=== PATIENT | female | born 1980 | race Caucasian/White ===

== ENCOUNTER 2022-02-16 14:00 | Outpatient (RCR) | payer OTHER, MEDICAID, SELFPAY ==
--- NOTE | 2022-01-31 16:06 | MHC.PT.EP ---
[facility] [place] [facility] [place] [facility] [place] [facility] [address] Uziel Andrew [address] [phone] F: [phone] F: [phone] F: [phone] F: [phone] Physical Therapy Plan of Care Date of Evaluation: Date of Surgery: NA Diagnosis: Unspecified fracture of sacrum, initial encounter for closed fracture Assessment: Glenys is a 41 year old female who is referred to PT Unspecified fracture of sacrum, initial encounter for closed fracture . She sustained the fracture about 2 weeks following a fall down the stairs. She also injured R shoulder and R LE. On PT examination she presented with TTP over thoraco-lumbar parapsinals, L4- L5 spinous process, B glute, sacrum and coccyx, 10/10 pain with sitting, walking and supine, decreased trunk ROM and B LE ROM, decreased B LE strength, altered posture and gait. She lives with her fiance who is currently helping her with all ADLS- like dressing showering, cleaning and cooking. 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 She is currently out of work. She would benefit from skilled PT to address the aforementioned impairments and improve tolerance to functional activities. Frequency and Duration: The patient will be seen 2/week for 6 weeks Short Term Goals: 1. Pt will have 50% decrease in pain and be able to walk for 10 minutes in 3 weeks. 2. Pt will be able to tolerate sitting for 15 minutes with a pain no more than 5/10 in 4 weeks Alf Goals: 1. Pt will be able to move her trunk through all planes of motion with a pain no more than 3/10 which will enable her to dress her lower body independently in 6 weeks. 2. Pt will demonstrate an increase in muscle strength by 1 grade which will enable to negotiate stairs and walk with a pain no more than 2/10 in 7 weeks. 3. Pt will be independent with [facility] for symptom management and maintenance following d/c in 8 weeks. Treatment Plan: Modalities to reduce pain, spasms and effusion. Manual therapy to restore motion and function. Therapeutic exercise to improve strength and flexibility. Neuromuscular re-education for posture and balance. Therapeutic activities to return to functional activities of daily living. Electronically signed by: Yesi Villavicencio PT DPT Please sign and return to therapist. Thank you for your referral.
--- NOTE | 2022-03-28 10:45 | MHC.PT.DC ---
[facility] [place] Office [place] Office [place] Office [address] [phone] F: [phone] F: [phone] F: [phone] F: [phone] Physical Therapy Discharge Report Diagnosis: Unspecified fracture of sacrum, initial encounter for closed fracture Date of Surgery: NA Date of Evaluation: 01/31/22 Date of Discharge: 03/28/22 Treatments to Date: 5 Cancellations to Date: 0 No Shows to Date: 0 Discharge Status: Patient Elected to Stop Discharge Summary: Glenys attended 5 PT visits. She called and d/c herself from PT due to change in her work schedule which made it difficult for her to attend PT. She is therefore being d/c from PT. Electronically signed by: Yesi Villavicencio, PT DPT Please sign and return to therapist. Thank you for your referral.
== END 2022-03-28 10:48 | disposition home or self-care (01) ==
LOC: HO.PT 14:00
PROVIDERS: PCP Internal Medicine; Visit Provider Internal Medicine
DX: S32.10XA Unspecified fracture of sacrum, initial encounter for closed fracture (principal)
CPT/HCPCS: 97110; 97140; 97162